=== PATIENT | female | born 1980 ===

== ENCOUNTER 2021-12-22 19:35 | Emergency (ER) | payer SELFPAY ==
[~2021-12-22] VITALS: Ht 167.6 cm; Wt 80.0 kg
[2021-12-22] MEDS ORDERED: LORAZEPAM 2MG/ML CPJ IM STA (21:14)
[2021-12-22] MEDS ORDERED: HALOPERIDOL LACTATE 5MG/ML VIAL IM STA (21:14)
[2021-12-23 00:08] LABS: BASOPHILS % 0.8 % (0.0-2.0); EOSINOPHILS % 0.9 % (0.0-5.0); HEMATOCRIT. 30.9 % (36.0-48.0); HEMOGLOBIN. 10.6 g/dL (12.0-16.0); LYMPHOCYTES % 20.4 % (20.0-50.0); MEAN CORPUSCULAR HEMOGLOBIN 29.4 pg (28.0-32.0); MEAN CORPUSCULAR VOLUME 85.5 fL (81.0-99.0); MEAN PLATELET VOLUME 8.1 fl (7.4-10.4); MONOCYTES % 8.1 % (2.0-8.0); NEUTROPHILS % 69.8 % (40.0-76.0); PLATELET 289 x1000/uL (130-400); RED BLOOD CELL COUNT 3.61 mill/uL (4.2-5.4); RED CELL DISTRIBUTION WIDTH 13.8 % (11.6-14.6)
[2021-12-23 00:19] LABS: HCG SCREEN NEGATIVE
[2021-12-23 00:23] LABS: CHLORIDE 108 mEq/L (98-107)
[2021-12-23 00:37] LABS: ETHANOL BLOOD < 10 mg/dL
[2021-12-23] MEDS ORDERED: POTASSIUM CHLORIDE 20MEQ/PACKET PO ONE (02:30)
[2021-12-23] MEDS ORDERED: POTASSIUM CHLORIDE 20MEQ/PACKET PO NR (09:15)
[2021-12-23] MEDS: QUETIAPINE FUMARATE 50MG TABLET PO SCH ×2 (11:00→16:45)
[2021-12-23] MEDS ORDERED: LORAZEPAM 0.5MG TABLET PO NR (17:00)
[2021-12-24 06:50] LABS: CLARITY URINE CLEAR (CLEAR); COLOR URINE YELLOW (YELLOW); KETONES URINE TRACE (NEGATIVE); LEUKOCYTE ESTERASE URINE 1+ (NEGATIVE); NITRITE URINE NEGATIVE (NEGATIVE); OCCULT BLOOD URINE NEGATIVE (NEGATIVE); PH URINE 6.5 (4.5-8.0); PROTEIN URINE NEGATIVE (NEGATIVE); SPECIFIC GRAVITY URINE 1.016 (1.005-1.030)
[2021-12-24 07:16] LABS: *AMPHETAMINES SCREEN URINE NEGATIVE (NEGATIVE); *BARBITURATES SCREEN URINE NEGATIVE (NEGATIVE); *BENZODIAZEPINES SCREEN URINE NEGATIVE (NEGATIVE); *COCAINE SCREEN URINE NEGATIVE (NEGATIVE); CANNABINOID URINE SCREEN NEGATIVE (NEGATIVE); METHADONE URINE SCREEN NEGATIVE (NEGATIVE); OPIATES URINE SCREEN NEGATIVE (NEGATIVE); PHENCYCLIDINE URINE SCREEN NEGATIVE (NEGATIVE)
[2021-12-24] MEDS ORDERED: LACTULOSE 20G/30ML UDC PO ONE (08:15)
[2021-12-24] MEDS: QUETIAPINE FUMARATE 50MG TABLET PO SCH (09:00)
[2021-12-24] MEDS ORDERED: LACTULOSE 20G/30ML UDC PO SCH (09:30)
[2021-12-24 19:39] VITALS: BP 120/77
== END 2021-12-24 20:00 | disposition home or self-care (01) ==
LOC: ER 19:35
DX: R41.82 Altered mental status, unspecified (principal); F31.9 Bipolar disorder, unspecified
CPT/HCPCS: 36415; 80053; 80305; 80307; 80320; 80329; 81003; 82140; 84443; 84703; 85025; 93005; 96372; 99285; J1630; J2060; G0480